=== PATIENT | female | born 1985 | race Two or more races ===

== ENCOUNTER 2021-08-10 08:55 | Emergency (ER) | payer BC ==
[~2021-08-10] VITALS: Ht 165.1 cm; Wt 63.5 kg
[2021-08-10 09:29] VITALS: BP 118/87
--- NOTE | 2021-08-10 09:29 | NUR ---
HAYDEN C/O LEFT ANKLE PAIN AND SWELLING S/P FALL LAST NIGHT, "I WAS WALKING OUTSIDE AND MY LEFT LEG FELL ON A SMALL PIT"
--- NOTE | 2021-08-10 09:34 | NUR ---
DR KING AT BEDSIDE FOR EVAL
--- NOTE | 2021-08-10 09:51 | NUR ---
X RAY AT BEDSIDE
[2021-08-10] MEDS ORDERED: NAPR-1192 PO (10:49)
--- NOTE | 2021-08-10 11:04 | NUR ---
Patient discharged to home in stable condition. Written and verbal after care instructions given. Patient verbalizes understanding of instruction.
== END 2021-08-10 11:06 | disposition home or self-care (01) ==
LOC: ER 09:11
DX: S82.65XA Nondisplaced fracture of lateral malleolus of left fibula, initial encounter for closed fracture (principal); Z79.1 Long term (current) use of non-steroidal anti-inflammatories (NSAID); W18.30XA Fall on same level, unspecified, initial encounter; Y93.89 Activity, other specified; Y92.89 Other specified places as the place of occurrence of the external cause; Y99.8 Other external cause status
CPT/HCPCS: 73610-TC

== ENCOUNTER 2023-01-29 13:02 | Emergency (ER) | payer BC ==
[~2023-01-29] VITALS: Ht 165.1 cm; Wt 64.4 kg
[~2023-01-29 13:02] MED LIST: NAPR-1192 PO
[2023-01-29] MEDS ORDERED: IV NS 0.9% 1,000 ML BAG IV ONE (13:30)
[2023-01-29] MEDS ORDERED: GLUCAGON,HUMAN RECOMBINANT 1 MG/VIAL VIAL IV ONE (13:30)
[2023-01-29 13:43] VITALS: BP 124/87; O2SAT 100
[2023-01-29 13:49] LABS: BASOPHILS % (AUTO) 0.8 % (0.0-2.0); EOSINOPHILS # (AUTO) 0.1 K/uL (0.0-0.7); EOSINOPHILS % (AUTO) 2.8 % (0.0-6.0); HEMATOCRIT 39 % (33-45); HEMOGLOBIN 12.8 g/dL (11.5-14.8); LYMPHOCYTES % (AUTO) 51.3 % (20.0-44.0); MEAN CORPUSCULAR HEMOGLOBIN 29 PG (26.0-33.0); MEAN CORPUSCULAR HGB CONC 33 g/dl (31.0-36.0); MEAN CORPUSCULAR VOLUME 88 fL (82-100); MONOCYTES # (AUTO) 0.2 K/uL (0.1-1.30); MONOCYTES % (AUTO) 6.5 % (2.0-12.0); NEUTROPHILS # (AUTO) 1.5 K/uL (1.8-8.9); NEUTROPHILS % (AUTO) 38.6 % (43.0-81.0); PLATELET COUNT (AUTO) 257 K/uL (150-450); RED BLOOD CELL COUNT(AUTO) 4.42 MIL/uL (4.0-5.2); RED CELL DISTRIBUTION WIDTH 12.5 % (11.5-15.0); WHITE BLOOD COUNT (AUTO) 3.8 K/uL (4.3-11.0)
[2023-01-29 14:22] LABS: POTASSIUM 3.4 mmol/L (3.5-5.1)
== END 2023-01-29 13:46 | disposition home or self-care (01) ==
LOC: ER 13:25
DX: T18.198A Other foreign object in esophagus causing other injury, initial encounter (principal); W44.8XXA Other foreign body entering into or through a natural orifice, initial encounter; Y93.89 Activity, other specified; Y92.89 Other specified places as the place of occurrence of the external cause; Y99.8 Other external cause status
CPT/HCPCS: 36415; 80048-TC; 85025-TC